=== PATIENT | male | born 1960 | race Two or more races ===

== ENCOUNTER 2023-02-03 12:02 | Inpatient (IN) | payer OTHER ==
[~2023-02-03] VITALS: Ht 170.2 cm; Wt 68.0 kg
[2023-02-03 13:11] LABS: Albumin 4.4 g/dL (3.4-5.0)
[2023-02-03 13:14] LABS: BUN/Creatinine Ratio 5.4 (10.0-20.0); Bilirubin, Total 3.4 mg/dL (0.2-1.0); Total Protein 8.5 g/dL (6.4-8.2)
[2023-02-03 13:18] LABS: Basophils # (auto) 0.1 10 ^3/uL (0-0.2); Eosinophils # (auto) 0 10 ^3/uL (0-0.8); Eosinophils % (auto) 0.2 % (0.0-7.0); Hematocrit 47.8 % (41.0-53.0); Hemoglobin 16.7 g/dL (13.5-17.5); Lymphocytes # (auto) 1.1 10 ^3/uL (0.4-5.4); Lymphocytes % (auto) 12.8 % (10.0-50.0); Mean Corpuscular Hemoglobin 32.7 pg (28.0-32.0); Mean Corpuscular Volume 93.6 fL (80.0-100.0); Monocytes # (auto) 0.7 10 ^3/uL (0-1.3); Monocytes % (auto) 8.2 % (0.0-12.0); Neutrophils # (auto) 6.7 10 ^3/uL (1.6-8.6); Neutrophils % (auto) 77.8 % (37.0-80.0); Nucleated Red Blood Cells % 0.2 %; White Blood Cell 8.6 10^3/uL (4.4-10.8)
[2023-02-03] MEDS ORDERED: amLODIPine BESYLATE 5 MG TAB PO ONE (16:00)
[2023-02-03] MEDS ORDERED: cloNIDine HCL 0.1 MG TAB PO ONE (16:00)
[2023-02-03] MEDS ORDERED: DEXTROSE (50%) 50ML SYRG IV PRN (17:45)
[2023-02-03] MEDS ORDERED: NITROGLYCERIN 0.4 MG SL TAB SL PRN (17:45)
[2023-02-03] MEDS ORDERED: ONDANSETRON HCL 4 MG/2 ML VIAL IV PRN (17:45)
[2023-02-03] MEDS ORDERED: MORPHINE SULFATE 4 MG/ML SYR/VIAL IV PRN (17:45)
[2023-02-03] MEDS ORDERED: ENOXAPARIN SOD 40 MG/0.4 ML SYRINGE SC ONE (17:45)
[2023-02-03] MEDS: InsuLIN REG 1unit/0.01ml Soln (100units/ml) SC SCH (21:51)
[2023-02-03] MEDS: ACCU-CHEK COMFORT CURVE STRIP VI SCH (21:51)
[2023-02-03] MEDS: METOPROLOL TARTRATE 25 MG TAB PO SCH (21:55)
[2023-02-03] MEDS ORDERED: ATORVASTATIN 20 MG TAB PO SCH (22:00)
[2023-02-04 06:19] LABS: Basophils # (auto) 0 10 ^3/uL (0-0.2); Basophils % (auto) 0.6 % (0.0-2.0); Eosinophils # (auto) 0.1 10 ^3/uL (0-0.8); Eosinophils % (auto) 1.8 % (0.0-7.0); Hematocrit 44.5 % (41.0-53.0); Lymphocytes # (auto) 1.6 10 ^3/uL (0.4-5.4); Lymphocytes % (auto) 25.6 % (10.0-50.0); Mean Corpuscular Hemoglobin 33.2 pg (28.0-32.0); Mean Corpuscular Hgb Conc. 35.9 g/dL (32.0-36.0); Mean Corpuscular Volume 92.6 fL (80.0-100.0); Monocytes # (auto) 0.7 10 ^3/uL (0-1.3); Monocytes % (auto) 10.3 % (0.0-12.0); Neutrophils % (auto) 61.7 % (37.0-80.0); Nucleated Red Blood Cells % 0.5 %; Red Blood Cells 4.81 10^6/uL (4.5-5.90); Red Cell Distribution Width 13.8 % (11.8-14.3); White Blood Cell 6.4 10^3/uL (4.4-10.8)
[2023-02-04] MEDS: InsuLIN REG 1unit/0.01ml Soln (100units/ml) SC SCH ×4 (06:23→22:00)
[2023-02-04] MEDS: ACCU-CHEK COMFORT CURVE STRIP VI SCH ×4 (06:23→22:40)
[2023-02-04 06:41] LABS: Potassium 3.3 mmol/L (3.5-5.1)
[2023-02-04 07:09] LABS: Albumin 3.8 g/dL (3.4-5.0); BUN/Creatinine Ratio 13.5 (10.0-20.0); Bilirubin, Total 5.4 mg/dL (0.2-1.0); Calcium 9.1 mg/dL (8.5-10.1); Magnesium 2.2 mg/dL (1.6-2.6); Total Protein 7.3 g/dL (6.4-8.2)
[2023-02-04] MEDS: ASPirin 81 mg TAB PO SCH (10:41)
[2023-02-04] MEDS: METOPROLOL TARTRATE 25 MG TAB PO SCH ×2 (10:41→22:08)
[2023-02-04 11:47] VITALS: BP 179/103
[2023-02-04 11:57] VITALS: BP 164/100
[2023-02-04] MEDS: hydrALAZINE HCL 20 MG/ML VL IV PRN (12:25)
[2023-02-04] MEDS: POTASSIUM CHL 20MEQ/100ML 100 ML IV SCH ×2 (12:25→14:27)
[2023-02-04] MEDS ORDERED: SODIUM CHLORIDE 0.9% 1,000 ML IV ONE (12:45)
[2023-02-04 14:15] VITALS: BP 136/78
[2023-02-04 16:00] VITALS: BP 135/86
[2023-02-04 22:00] VITALS: BP 172/91
[2023-02-05 05:00] VITALS: BP 164/96
[2023-02-05] MEDS: hydrALAZINE HCL 20 MG/ML VL IV PRN (05:42)
[2023-02-05] MEDS: ACCU-CHEK COMFORT CURVE STRIP VI SCH (06:23)
[2023-02-05] MEDS: InsuLIN REG 1unit/0.01ml Soln (100units/ml) SC SCH (06:23)
[2023-02-05] MEDS ORDERED: METO-158 PO (08:32)
[2023-02-05 08:52] VITALS: BP 140/71
[2023-02-05] MEDS: ASPirin 81 mg TAB PO SCH (10:00)
[2023-02-05 10:10] VITALS: BP 164/96
[2023-02-05] MEDS: METOPROLOL TARTRATE 25 MG TAB PO SCH (10:44)
== END 2023-02-05 10:55 | disposition home or self-care (01) | DRG 190 ==
LOC: ER 12:02 → TELE 17:40 → TELE-CENTR 02-04 11:44
PROVIDERS: ADMIT Nurse Practitioner Family; ATTEND Family Medicine
DX: I21.4 Non-ST elevation (NSTEMI) myocardial infarction (principal); E87.1 Hypo-osmolality and hyponatremia; E11.65 Type 2 diabetes mellitus with hyperglycemia; I16.1 Hypertensive emergency; K76.0 Fatty (change of) liver, not elsewhere classified; I10 Essential (primary) hypertension; E86.0 Dehydration; E87.6 Hypokalemia
CPT/HCPCS: 36415; 71045; 76705; 80053; 80320; 82962; 83036; 83735; 84484; 85025; 93306; 96372; G0378; J3480